=== PATIENT | male | born 1995 | race Two or more races ===

== ENCOUNTER 2022-10-03 10:57 | Emergency (ER) | payer SELFPAY ==
[~2022-10-03] VITALS: Ht 175.3 cm; Wt 73.4 kg
[2022-10-03 12:47] VITALS: BP 130/80
== END 2022-10-03 13:41 | disposition home or self-care (01) ==
LOC: ER 10:57
DX: S29.011A Strain of muscle and tendon of front wall of thorax, initial encounter (principal); X58.XXXA Exposure to other specified factors, initial encounter; Y93.89 Activity, other specified; Y92.89 Other specified places as the place of occurrence of the external cause; Y99.8 Other external cause status
CPT/HCPCS: 71101

== ENCOUNTER 2025-05-31 15:09 | Inpatient (IN) | payer MEDICAID, OTHER ==
[~2025-05-31] VITALS: Ht 175.3 cm; Wt 90.9 kg
--- NOTE | 2025-05-31 15:40 | ED.PDOC ---
GI ASSESSMENT HPI Comments This is a 29 year old male presenting to the ED with chief complaint of abdominal pain and blood in stool. Patient reports that he has been experiencing LLQ abdominal pain for the past 3 days with associated nausea, dizziness, and lightheadedness, however, he started to experience bright red blood in his stool today. Patient relays that he has had similar pain in the past. Patient denies any vomiting, diarrhea, fever, chills, or headache. Chief Complaint: Abdominal Pain Time Seen by MD: 15:36 Primary Care Provider: NONE Reviewed Notes: Nurses Notes, Medications, Allergies Allergies: Coded Allergies: NO KNOWN ALLERGIES (Unverified , 10/03/22) Home Meds Active Scripts Hydrocortisone Base (Anusol-Hc) 2.5 % Cre, 1 APPLIC TOP BID for 10 Days, #5 GRAMS 1 Refill Prov:OZZY WONG MD 05/31/25 Information Source: Patient Mode of Arrival: Ambulatory Timing: Days Duration: Since onset Prehospital treatment: None Quality: Sharp Vomitus: None Stool: Blood Streaked Severity: Moderate Recent: None Recent Hx of: None Pain Location: LLQ Modifying Factors: Nothing Associated sign and symptoms: Abdominal Pain, Blood in Stool Past Medical History PAST MEDICAL HISTORY: Denies Surgical History: Denies all surgeries Family History Family History: Reviewed,noncontributory to illness Social History Smoker: Non-Smoker Alcohol: Denies ETOH Use Drugs: Denies Drug Use Lives In: Home Constitutional: denies: chills, diaphoresis, fatigue, fever, malaise, sweats, weakness, others EENTM: denies: blurred vision, double vision, ear bleeding, ear discharge, ear drainage, ear pain, ear ringing, eye pain, eye redness, hearing loss, mouth pain, mouth swelling, nasal discharge, nose bleeding, nose congestion, nose p ain, photophobia, tearing, throat pain, throat swelling, voice changes, others Respiratory: denies: cough, hemoptysis, orthopnea, SOB at rest, shortness of breath, SOB with excertion, stridor, wheezing, others Cardiovascular: reports: lightheadedness; denies: chest pain, dizzy spells, diaphoresis, Dyspnea on exertion, edema, irregular heart beat, left arm pain, palpitations, PND, syncope, others Gastrointestinal: reports: abdominal pain, blood streaked bowels, nausea; denies: abdomen distended, constipated, diarrhea, dysphagia, difficulty swallowing, hematemesis, melena, poor appetite, poor fluid intake, rectal bleeding, rectal pain, vomiting, others Genitourinary: denies: burning, dysuria, flank pain, frequency, hematuria, incontinence, penile discharge, penile sore, pain, testicle pain, testicle swelling, urgency, others Neurological: reports: dizziness; denies: fainting, headache, left sided numbness, left sided weakness, numbness, paresthesia, pre-existing deficit, right sided numbness, right sided weakness, seizure, speech problems, tingling, tremors, weakness, others Musculoskeletal: denies: back pain, gout, joint pain, joint swelling, muscle pain, muscle stiffness, neck pain, others Integumetry: denies: bruises, change in color, change in hair/nails, dryness, laceration, lesions, lumps, rash, wounds, others Allergic/Immunocompromised: denies: Difficulty Healing, Frequent Infections, Hives, Itching, others Hematologic/Lymphatic: denies: anemia, blood clots, easy bleeding, easy bruising, swollen glands, others Endocrine: denies: excessive hunger, excessive sweating, excessive thirst, excessive urination, flushing, intolerance to cold, intolerance to heat, unexplained weight gain, unexplained weight loss, others Psychiatric: denies: anxiety, bipolar disorder, depression, hopeless, panic disorder, schizophrenia, sleepless, suicidal, others All Other Systems: Reviewed and Negative Physical Exam General Appearance: Moderate Distress, Normal HEENT: Normal ENT Inspection, Pharynx Normal, TMs Normal Neck: Full Range of Motion, Non-Tender, Normal, Normal Inspection Respiratory: Chest Non-Tender, Lungs Clear, No Accessory Muscle Use, No Respiratory Distress, Normal Breath Sounds Cardiovascular: No Edema, No JVD, No Murmur, No Gallop, Normal Peripheral Pulses, Regular Rate/Rhythm Breast Exam: Deferred Gastrointestinal: No Organomegaly, Non Tender, No Pulsatile Mass, Normal Bowel Sounds, Soft Genitalia: Deferred Pelvic: Deferred Rectal: Deferred Extremities: No calf tenderness, Normal capillary refill, Normal inspection, Normal range of motion, Non-tender, No pedal edema Musculoskeletal : Apperance: Normal Neurologic: Alert, bone grinder II-XII nml as Tested, No Motor Deficits, Normal Affect, Normal Mood, No Sensory Deficits Cerebellar Function: Normal Reflexes: Normal Skin: Dry, Normal Color, Warm Peripheral Pulses: 3+ Radial (R), 3+ Radial (L) Lymphatic: No Adenopathy Was a procedure done? Was a procedure done?: No GI differential Dx Differential Diagnosis: Constipation, Diverticular disease, Esophagitis, Gastritis/PUD, Gastroenteritis X-Ray, Labs, Meds, VS Vital Signs Date Time Temp Pulse Resp B/P (MAP) Pulse Ox O2 Delivery O2 Flow Rate FiO2 05/31/25 15:19 98.0 88 16 131/85 96 98.0 Lab Test 05/31/25 15:41 Range/Units White Blood Count 5.4 4.4-10.8 10^3/uL Red Blood Count 5.17 4.5-5.90 10^6/uL Hemoglobin 16.6 13.5-17.5 g/dL Hematocrit 49.9 41.0-53.0 % Mean Corpuscular Volume 96.4 80.0-100.0 fL Mean Corpuscular Hemoglobin 32.1 H 28.0-32.0 pg Mean Corpuscular Hemoglobin Concent 33.3 32.0-36.0 g/dL Red Cell Distribution Width 13.5 11.8-14.3 % Platelet Count 275 140-450 10^3/uL Mean Platelet Volume 7.8 6.9-10.8 fL Neutrophils (%) (Auto) 55.7 37.0-80.0 % Lymphocytes (%) (Auto) 30.6 10.0-50.0 % Monocytes (%) (Auto) 10.7 0.0-12.0 % Eosinophils (%) (Auto) 1.5 0.0-7.0 % Basophils (%) (Auto) 1.5 0.0-2.0 % Neutrophils # (Auto) 3.0 1.6-8.6 10 ^3/uL Lymphocytes # (Auto) 1.7 0.4-5.4 10 ^3/uL Monocytes # (Auto) 0.6 0-1.3 10 ^3/uL Eosinophils # (Auto) 0.1 0-0.8 10 ^3/uL Basophils # (Auto) 0.1 0-0.2 10 ^3/uL Nucleated Red Blood Cells 0.0 % Patient alert. Came in because of blood per rectum. Vitals stable. Answering questions. Possible hemorrhoid. WBC within normal limits. Hemoglobin within normal limits. Complaining of abdominal discomfort. CT scan of the abdomen reviewed does show appendagitis. Was given prescription of Anusol hydrocortisone. He continues to have abdominal pain. He will be admitted for pain control. Explained to the patient. Time of 1ST Reevaluation: 16:36 Reevaluation 1ST: Unchanged Patient Education/Counseling: Diagnosis, Treatment Family Education/Counseling: No Family Present SEPSIS Sepsis Screen Date sepsis recognized/suspect: May 31, 2025 Time Sepsis recognized/suspect: 1521 Recent Procedure: No On Antibiotic Therapy: No Respiratory Rate >20: No Heart Rate >90: No Temp<36 C (96.8 F) or >38.3 C: No SBP <90 or MAP <65 mmHG: No New Acute Mental Status Change: No Is the patient on CPAP, BIPAP,: No Physician Orders Ct Ab Pel Wo Con-No Oral Or Iv (05/31/25 15:33) Vital Signs Date Time Temp Pulse Resp B/P (MAP) Pulse Ox O2 Delivery O2 Flow Rate FiO2 05/31/25 15:19 98.0 88 16 131/85 96 98.0 Laboratory Tests Test 05/31/25 15:41 White Blood Count 5.4 10^3/uL (4.4-10.8) Departure 1 Departure Time of Disposition: 16:18 Impression: Primary Impression: Epiploic appendagitis Additional Impression: Hemorrhoid Qualified Codes: K64.9 - Unspecified hemorrhoids Disposition: 01 HOME / SELF CARE / HOMELESS Condition: Good e-Prescriptions Hydrocortisone Base (Anusol-Hc) 2.5 % Cre 1 APPLIC TOP BID for 10 Days, #5 GRAMS 1 Refill Prov: OZZY WONG MD 05/31/25 Discharged With: Self Critical Care Note Critical Care Time?: No Stability Stability form required: No Heart Score Heart Score: Heart Score Response (Comments) Value History N/A 0 EKG N/A 0 Age N/A 0 Risk Factors N/A 0 Troponin N/A 0 Total 0 I personally scribed for OZZY WONG MD ([email or web address]) on 05/31/25 at 15:40. Electronically submitted by Noah Vasques ([email or web address]). OZZY WONG MD May 31, 2025 15:40
[2025-05-31 15:58] LABS: Hematocrit 49.9 % (41.0-53.0); Hemoglobin 16.6 g/dL (13.5-17.5); Mean Corpuscular Hemoglobin 32.1 pg (28.0-32.0); Mean Corpuscular Volume 96.4 fL (80.0-100.0); Nucleated Red Blood Cells % 0.0 %
[2025-05-31] MEDS ORDERED: HYDR2.5C39 TOP (16:19)
--- NOTE | 2025-05-31 16:22 | DVH ---
EXAM: CT CT AB PEL WO CON-NO ORAL OR IV INDICATION: constipationvsenteritis TECHNIQUE: Volumetric multidetector CT images of the abdomen and pelvis were obtained without contrast. All CT scans at this facility use dose modulation, iterative reconstruction, and/or weight based dosing when appropriate to reduce radiation dose to as low as reasonably achievable. COMPARISON: None FINDINGS: [LOWER CHEST]: Atelectasis in the right lung base. The cardiac size is normal without pericardial effusion. [LIVER]: Inconspicuous geographic areas of hypoattenuation of the liver which is incompletely characterized. Differential includes hepatic steatosis. [GALLBLADDER AND BILIARY TREE]: No cholelithiasis. [SPLEEN]: Splenic calcifications. [PANCREAS]: Unremarkable. [ADRENAL GLANDS]: Unremarkable [KIDNEYS]: No hydronephrosis. No nephroureterolithiasis. No suspicious focal lesion. [BLADDER]: Unremarkable for the degree distention. [REPRODUCTIVE ORGANS]: Unremarkable. [BOWEL/MESENTERY]: Inconspicuous area of presumed epiploic appendagitis of the anterior aspect of the left descending colon (axial 54). No significant stool burden. Normal appendix. Stomach is normal. No CT evidence of bowel obstruction. [ASCITES]: Absent [LYMPHADENOPATHY]: No pathologically enlarged lymph nodes by CT size criteria [VASCULATURE]: No aneurysmal dilatation. [ABDOMINAL WALL]: Unremarkable. [MUSCULOSKELETAL]: No acute fracture or aggressive focal osseous lesion. IMPRESSION: 1. Inconspicuous area of presumed epiploic appendagitis of the anterior aspect of the left descending colon. 2. No significant stool burden. 3. geographic areas of hypoattenuation of the liver which is incompletely characterized. Inconspicuous 4. Differential includes hepatic steatosis.
[2025-05-31] MEDS: SODIUM CHLORIDE 0.9% 1,000 ML IV ONE (16:45)
[2025-05-31] MEDS ORDERED: ACETAMINOPHEN 325 MG TAB PO PRN (17:15)
[2025-05-31] MEDS ORDERED: MORPHINE SULFATE INJ 2 MG/ml SYRG IV PRN (17:15)
[2025-05-31] MEDS ORDERED: ONDANSETRON HCL 4 MG/2 ML VIAL IV PRN (17:15)
[2025-05-31] MEDS ORDERED: NITROGLYCERIN 0.4 MG SL TAB SL PRN (17:15)
[2025-05-31] MEDS ORDERED: DOCUSATE SOD 100 MG CAP PO PRN (17:15)
--- NOTE | 2025-05-31 17:19 | DVHHP2 ---
History of Present Illness Reason for Visit: Epiploic appendagitis History of Present Illness The patient is a 29-year-old male who denies past medical history presented to [facility] ED with complaint of abdominal pain for the past 3 days. Patient reports that he has been experiencing left lower quadrant abdominal pain associated with bright red blood in stool, nausea, dizziness, lightheadedness, getting worse today that prompted this visit. Patient was seen and evaluated in the ED, laboratory data shows WBC 5.4, platelets 275, chemistry pending, blood pressure 131/85, heart rate 88, temperature 98.0 F, O2 saturation 96% on room air. Abdomen/pelvis CT revealing inconspicuous area of presumed epiploic appendagitis of the anterior aspect of the left ascending colon, no significant stool burden. Patient was started on IV antibiotic regimen Flagyl, please see medication orders section in the computer. On my assessment, patient denied chest pain, no headache, dizziness, diaphoresis, shortness of breaths, no abdominal pain at this moment, diarrhea, nausea, vomiting, fever, no chills. Patient was admitted for further evaluation and medical management. Past Medical History Denies past medical history Past Surgical History Denies all surgeries Family History Reviewed, noncontributory to the management of this case. Past Social History The patient lives at home, denies smoking, alcohol or illicit drugs abuse. Review of Systems Constitutional: No: Fever, Chills, Sweats, Weakness, Malaise, Other Eyes: No: Pain, Vision change, Conjunctivae inflammation, Eyelid inflammation, Other, Redness ENT: No: Ear pain, Ear discharge, Nose pain, Nose discharge, Nose congestion, Mouth pain, Mouth swelling, Throat pain, Throat swelling, Other Respiratory: No: Cough, Dry, Shortness of breath, SOB with excertion, Wheezing, Hemoptysis, Pleuritic Pain, Sputum, Wheezing, Other Cardiovascular: Lt Headedness; No: Chest Pain, Palpitations, Orthopnea, Paroxysmal Noc. Dyspnea, Edema, Other Gastrointestinal: Nausea, Abdominal Pain, Other (Blood streaked bowels); No: Vomiting, Diarrhea, Constipation, Melena, Hematochezia Genitourinary: No Dysuria, No Frequency, No Incontinence, No Hematuria, No R etention, No Other Musculoskeletal: No: other, neck pain, shoulder pain, arm pain, back pain, hand pain, leg pain, foot pain Skin: No: Rash, Lesions, Jaundice, Bruising, Other Neurological: No: Weakness, Numbness, Incoordination, Change in speech, Confusion, Seizures, Other Allergies: Coded Allergies: NO KNOWN ALLERGIES (Unverified , 10/03/22) Exam Vital Signs Vital Signs Date Time Temp Pulse Resp B/P (MAP) Pulse Ox O2 Delivery O2 Flow Rate FiO2 05/31/25 15:19 98.0 88 16 131/85 96 98.0 General Appearance: Alert, Oriented X3, Cooperative, No acute distress HEENT: Atraumatic, PERRLA, EOMI, Mucous membr. moist/pink Respiratory: Normal air movement Cardiovascular: Regular rate, Normal S1, Normal S2, No murmurs Abdominal: Normal bowel sounds, Soft, No hepatospenomegaly, No masses, Other (Reports tenderness) Extremities: No clubbing, No cyanosis, No edema, Normal pulses, No tenderness/swelling Skin: No rashes, No breakdown, No significant lesion Neuro: Normal speech, Normal tone, Sensation intact, Cranial nerves 3-12 NL, Reflexes 2+, Other (Weakness) Psych/Mental Status: Mental status NL, Mood NL Labs/Xrays Labs Test 05/31/25 15:41 Range/Units White Blood Count 5.4 4.4-10.8 10^3/uL Red Blood Count 5.17 4.5-5.90 10^6/uL Hemoglobin 16.6 13.5-17.5 g/dL Hematocrit 49.9 41.0-53.0 % Mean Corpuscular Volume 96.4 80.0-100.0 fL Mean Corpuscular Hemoglobin 32.1 H 28.0-32.0 pg Mean Corpuscular Hemoglobin Concent 33.3 32.0-36.0 g/dL Red Cell Distribution Width 13.5 11.8-14.3 % Platelet Count 275 140-450 10^3/uL Mean Platelet Volume 7.8 6.9-10.8 fL Neutrophils (%) (Auto) 55.7 37.0-80.0 % Lymphocytes (%) (Auto) 30.6 10.0-50.0 % Monocytes (%) (Auto) 10.7 0.0-12.0 % Eosinophils (%) (Auto) 1.5 0.0-7.0 % Basophils (%) (Auto) 1.5 0.0-2.0 % Neutrophils # (Auto) 3.0 1.6-8.6 10 ^3/uL Lymphocytes # (Auto) 1.7 0.4-5.4 10 ^3/uL Monocytes # (Auto) 0.6 0-1.3 10 ^3/uL Eosinophils # (Auto) 0.1 0-0.8 10 ^3/uL Basophils # (Auto) 0.1 0-0.2 10 ^3/uL Nucleated Red Blood Cells 0.0 % PATIENT: VAMSI BELL ACCT: [id number] UNIT: [id number] : 1995 LOC: ER ROOM / BED: / AGE / SEX: 29 / M ADM STATUS: REG ER SERVICE 1533 ORDERING PHYSICIAN: OZZY WONG MD PROCEDURE(s): ABPL - CT AB PEL WO CON-NO ORAL OR IV REASON: constipationvsenteritis ORDER NUMBER(s): [id number], ACCESSION NUMBER(s): [id number] EXAM: CT CT AB PEL WO CON-NO ORAL OR IV INDICATION: constipationvsenteritis TECHNIQUE: Volumetric multidetector CT images of the abdomen and pelvis were obtained without contrast. All CT scans at this facility use dose modulation, iterative reconstruction, and/or weight based dosing when appropriate to reduce radiation dose to as low as reasonably achievable. COMPARISON: None FINDINGS: [LOWER CHEST]: Atelectasis in the right lung base. The cardiac size is normal without pericardial effusion. [LIVER]: Inconspicuous geographic areas of hypoattenuation of the liver which is incompletely characterized. Differential includes hepatic steatosis. [GALLBLADDER AND BILIARY TREE]: No cholelithiasis. [SPLEEN]: Splenic calcifications. [PANCREAS]: Unremarkable. [ADRENAL GLANDS]: Unremarkable [KIDNEYS]: No hydronephrosis. No nephroureterolithiasis. No suspicious focal lesion. [BLADDER]: Unremarkable for the degree distention. [REPRODUCTIVE ORGANS]: Unremarkable. [BOWEL/MESENTERY]: Inconspicuous area of presumed epiploic appendagitis of the anterior aspect of the left descending colon (axial 54). No significant stool burden. Normal appendix. Stomach is normal. No CT evidence of bowel obstruction. [ASCITES]: Absent [LYMPHADENOPATHY]: No pathologically enlarged lymph nodes by CT size criteria [VASCULATURE]: No aneurysmal dilatation. [ABDOMINAL WALL]: Unremarkable. [MUSCULOSKELETAL]: No acute fracture or aggressive focal osseous lesion. IMPRESSION: 1. Inconspicuous area of presumed epiploic appendagitis of the anterior aspect of the left descending colon. 2. No significant stool burden. 3. geographic areas of hypoattenuation of the liver which is incompletely characterized. Inconspicuous 4. Differential includes hepatic steatosis. SEPSIS Sepsis Screen Date sepsis recognized/suspect: May 31, 2025 Time Sepsis recognized/suspect: 1521 Recent Procedure: No On Antibiotic Therapy: No Respiratory Rate >20: No Heart Rate >90: No Temp<36 C (96.8 F) or >38.3 C: No SBP <90 or MAP <65 mmHG: No New Acute Mental Status Change: No Is the patient on CPAP, BIPAP,: No Physician Orders Ct Ab Pel Wo Con-No Oral Or Iv (05/31/25 15:33) Sodium Chloride 0.9% (05/31/25 16:45) Metronidazole Ivpb Flagyl (05/31/25 22:00) Metronidazole Ivpb Flagyl (05/31/25 17:15) Ceftriaxone Ivpb Rocephin (06/01/25 09:00) Ceftriaxone Ivpb Rocephin (05/31/25 17:15) Admit (05/31/25 17:15) Allergies (05/31/25 17:15) Code Status (05/31/25 17:15) 0.9% Ns 1000 Ml (05/31/25 17:15) Oxygen Per Hour (05/31/25 17:15) Hydrocodone-Acet 5/325mg Tab ([place] 5/32 (05/31/25 17:15) Ondansetron Hcl (Zofran) (05/31/25 17:15) Docusate Sodium Capsule (Colace Capsule) (05/31/25 17:15) Complete Blood Count (06/01/25 04:00) Comprehensive Metabolic Panel (06/01/25 04:00) Condition: Serious (05/31/25 17:15) Acetaminophen Tablet (Tylenol Tablet) (05/31/25 17:15) Clear Liq Diet (05/31/25 Dinner) Bedrest With Bathroom Privileg (05/31/25 17:15) Morphine Sulfate Injection (05/31/25 17:15) Sequential Compression Device (05/31/25 ) Nitroglycerin Sublingual (Ntrostat Subli (05/31/25 17:15) Morphine Sulfate Injection (05/31/25 17:15) Stat Ekg For Chest Pain (05/31/25 17:15) Notify Md Of Changes From Base (05/31/25 17:15) Laminating Machine Offbearer For 24 Hours (05/31/25 17:15) Emergency Dysrhythmia Protocol (05/31/25 17:15) Rhythm Strips Once Every Shift (05/31/25 17:15) Oxygen By Nasal Cannula (05/31/25 17:15) Vital Signs Date Time Temp Pulse Resp B/P (MAP) Pulse Ox O2 Delivery O2 Flow Rate FiO2 05/31/25 15:19 98.0 88 16 131/85 96 98.0 Laboratory Tests Test 05/31/25 15:41 White Blood Count 5.4 10^3/uL (4.4-10.8) Assessment/Plan Assessment/Plan Epiploic appendagitis Hemorrhoid Unspecified hemorrhoids Plan 1. Admit to med surge unit 2. Breathing treatment 3. Pain control management 4. IV antibiotic management 5. Management of fluids and electrolytes 6. Consultation for hospitalist 7. Diagnostic test abdomen/pelvis CT 8. DVT prophylaxis on SCDs 9. Repeat labs CBC, CMP in a.m. 10. Continue with current medical management 11. Treatment plan discussed with patient and RN. Patient verbalized understanding. Plan discussed with: Patient, Other (RN) My Orders Orders - JAMIE STEPHENSON DNP Procedure Category Date Status Time Metronidazole Ivpb PHA 05/31/25 Verified Flagyl 22:00 Metronidazole Ivpb PHA 05/31/25 Verified Flagyl 17:15 Ceftriaxone Ivpb PHA 06/01/25 Verified Rocephin 09:00 Ceftriaxone Ivpb PHA 05/31/25 Verified Rocephin 17:15 Admit ADMIT 05/31/25 Verified 17:15 Allergies BRENNAN 05/31/25 Verified 17:15 Code Status CODE 05/31/25 Verified 17:15 0.9% Ns 1000 Ml PHA 05/31/25 Verified 17:15 Oxygen Per Hour RT 05/31/25 Verified 17:15 Hydrocodone-Acet PHA 05/31/25 Verified 5/325mg Tab ([place] 17:15 Ondansetron Hcl PHA 05/31/25 Verified (Zofran) 17:15 Docusate Sodium PHA 05/31/25 Verified Capsule (Colace 17:15 Complete Blood Count LAB 06/01/25 Verified 04:00 Comprehensive LAB 06/01/25 Verified Metabolic Panel 04:00 Condition: Serious BRENNAN 05/31/25 Verified 17:15 Acetaminophen Tablet PHA 05/31/25 Verified (Tylenol Tablet) 17:15 Clear Liq Diet DIET 05/31/25 Verified Dinner Bedrest With Bathroom BRENNAN 05/31/25 Verified Privileg 17:15 Morphine Sulfate PHA 05/31/25 Verified Injection 17:15 Sequential BRENNAN 05/31/25 Verified Compression Device Nitroglycerin [facility] 05/31/25 Verified Sublingual (Ntrostat 17:15 Morphine Sulfate PHA 05/31/25 Verified Injection 17:15 Stat Ekg For Chest [facility] 05/31/25 Verified Pain 17:15 Notify Md Of Changes [facility] 05/31/25 Verified From Base 17:15 Laminating Machine Offbearer For [facility] 05/31/25 Verified 24 Hours 17:15 Emergency Dysrhythmia [facility] 05/31/25 Verified Protocol 17:15 Rhythm Strips Once [facility] 05/31/25 Verified Every Shift 17:15 Oxygen By Nasal RT 05/31/25 Verified Cannula 17:15 Problem List: (1) Epiploic appendagitis (2) Hemorrhoid (3) Unspecified hemorrhoids Date of Service: May 31, 2025 Billing Provider: JAMIE STEPHENSON DNP Common Visit Codes: [id number] INP/OBS CARE (HIGH) AJMIE STEPHENSON DNP May 31, 2025 17:19
[2025-05-31 18:34] LABS: Anion Gap 12 (5-15); BUN/Creatinine Ratio 11.4 (10.0-20.0); Bilirubin, Total 0.7 mg/dL (0.2-1.0); Blood Urea Nitrogen 9 mg/dL (9-23); Calcium 9.9 mg/dL (8.7-10.4); Carbon Dioxide 25 mmol/L (20-31); Chloride 106 mmol/L (98-107); Glucose 94 mg/dL (74-106); Potassium 3.7 mmol/L (3.5-5.1); Sodium 143 mmol/L (136-145)
[2025-05-31 18:36] LABS: Alanine Aminotransferase 155 U/L (7-40); Albumin 4.8 g/dL (3.2-4.8); Alkaline Phosphatase 156 U/L (46-116); Total Protein 8.3 g/dL (5.7-8.2)
[2025-05-31] MEDS: ONDANSETRON HCL 4 MG/2 ML VIAL IV ONE (21:32)
[2025-05-31] MEDS: MORPHINE SULFATE 4 MG/ML SYR/VIAL IV ONE (21:34)
[2025-05-31 22:22] VITALS: BP 137/81; PULSE 71; RESP 18; TEMP 98.1; O2SAT 95; O2SAT 97
[2025-05-31 22:43] VITALS: BP 137/81; PULSE 71; RESP 18; TEMP 98.1; O2SAT 95
[2025-05-31] MEDS ORDERED: CALC500C3 PO (23:19)
[2025-06-01 01:00] VITALS: BP 118/76; PULSE 59; RESP 18; TEMP 98.4; O2SAT 97
[2025-06-01] MEDS: SODIUM CHLORIDE 0.9% 1,000 ML IV SCH (01:07)
[2025-06-01] MEDS: HYDROcodone-ACET 5/325MG TAB PO PRN (01:41)
[2025-06-01 03:24] LABS: Hematocrit 44.9 % (41.0-53.0); Hemoglobin 15.1 g/dL (13.5-17.5); Mean Corpuscular Hemoglobin 32.4 pg (28.0-32.0); Mean Corpuscular Volume 96.6 fL (80.0-100.0); Nucleated Red Blood Cells % 0.0 %
[2025-06-01 03:37] LABS: Albumin 4.1 g/dL (3.2-4.8); Anion Gap 10 (5-15); BUN/Creatinine Ratio 12.8 (10.0-20.0); Bilirubin, Total 0.6 mg/dL (0.2-1.0); Blood Urea Nitrogen 10 mg/dL (9-23); Calcium 9.1 mg/dL (8.7-10.4); Carbon Dioxide 26 mmol/L (20-31); Chloride 103 mmol/L (98-107); Glucose 103 mg/dL (74-106); Potassium 3.7 mmol/L (3.5-5.1); Sodium 139 mmol/L (136-145); Total Protein 7.0 g/dL (5.7-8.2)
[2025-06-01 03:48] LABS: Alanine Aminotransferase 121 U/L (7-40); Alkaline Phosphatase 130 U/L (46-116)
[2025-06-01 05:00] VITALS: BP 103/67; PULSE 50; RESP 18; TEMP 97.4; O2SAT 98
[2025-06-01 09:00] VITALS: BP 122/79; PULSE 72; RESP 20; TEMP 97.4; O2SAT 95
[2025-06-01 13:00] VITALS: BP 127/92; PULSE 61; RESP 20; TEMP 98.1; O2SAT 97
--- NOTE | 2025-06-01 15:18 | DVHPN2 ---
Subjective Mild pain today Reviewed: H&P Changes from previous H/P or p: No Changes Eyes: No Pain, No Vision change, No Conjunctivae inflammation, No Eyelid inflammation, No Other, No Redness ENT: No Ear pain, No Ear discharge, No Nose pain, No Nose discharge, No Nose congestion, No Mouth pain, No Mouth swelling, No Throat pain, No Throat swelling, No Other Cardiovascular: No Chest Pain, No Palpitations, No Orthopnea, No Paroxysmal Noc. Dyspnea, No Edema; Lt Headedness; No Other Respiratory: No Cough, No Dry, No Shortness of breath, No SOB with excertion, No Wheezing, No Hemoptysis, No Pleuritic Pain, No Sputum, No Other Gastrointestinal: Nausea; No Vomiting; Abdominal Pain; No Diarrhea, No Constipation, No Melena, No Hematochezia; Other (Blood streaked bowels) Genitourinary: No Dysuria, No Frequency, No Incontinence, No Hematuria, No Retention, No Other Musculoskeletal: No other, No neck pain, No shoulder pain, No arm pain, No back pain, No hand pain, No leg pain, No foot pain Skin: No Rash, No Lesions, No Jaundice, No Bruising, No Other Objective Vitals Vital Signs Date Time Temp Pulse Resp B/P (MAP) Pulse Ox O2 Delivery O2 Flow Rate FiO2 06/01/25 13:00 98.1 61 20 127/92 (104) 97 98.1 05/31/25 22:22 Room Air* 0 21 Intake/Output Intake and Output 06/01/25 07:00 Intake Total 200 ml Balance 200 ml Intake IV Total 200 ml # Voids 2 General Appearance: Alert, Oriented X3 Lungs: Clear to auscultation Cardiovascular: Regular rate, Normal S1, Normal S2 Abdomen: Normal bowel sounds Medications Current Medications Medications Dose Ordered Sig/Ritchie Route Start Time Stop Time Status Last Admin Dose Admin Metronidazole 100 ml @ 100 mls/hr Q8H IV 05/31/25 17:24 06/01/25 08:56 100 MLS/HR Ceftriaxone Sodium 50 ml @ 100 mls/hr DAILY@09 IV 06/01/25 09:00 06/01/25 08:56 100 MLS/HR Sodium Chloride 1,000 ml @ 60 mls/hr [id number] IV 05/31/25 17:15 06/01/25 01:07 60 MLS/HR Acetaminophen/ Hydrocodone Bitart 1 tab Q4HP PRN PO 05/31/25 17:15 06/01/25 13:23 1 TAB Ondansetron HCl 4 mg Q4HP PRN IV 05/31/25 17:15 Docusate Sodium 100 mg BIDPRN PRN PO 05/31/25 17:15 Acetaminophen 650 mg Q6HP PRN PO 05/31/25 17:15 Morphine Sulfate 2 mg Q4HPRN PRN IV 05/31/25 17:15 Nitroglycerin 0.4 mg Q5MINP PRN SL 05/31/25 17:15 Morphine Sulfate 2 mg Q30M PRN IV 05/31/25 17:15 Laboratory Results Laboratory Tests 06/01/25 02:22 Chemistry Test 05/31/25 15:41 06/01/25 02:22 Albumin 4.8 g/dL (3.2-4.8) 4.1 g/dL (3.2-4.8) Calcium Level 9.9 mg/dL (8.7-10.4) 9.1 mg/dL (8.7-10.4) Total Protein 8.3 g/dL (5.7-8.2) H 7.0 g/dL (5.7-8.2) LFT Test 05/31/25 15:41 06/01/25 02:22 Alanine Aminotransferase (ALT) 155 U/L (7-40) H 121 U/L (7-40) H Alkaline Phosphatase 156 U/L (46-116) H 130 U/L (46-116) H Aspartate Amino Transferase (AST) 182 U/L (13-40) H 146 U/L (13-40) H Total Bilirubin 0.7 mg/dL (0.2-1.0) 0.6 mg/dL (0.2-1.0) Assessment/Plan Assessment/Plan Epiploic appendagitis Hemorrhoid Unspecified hemorrhoids Consult surgery NPO IVF IV ceftriaxone and flagyl Plan discussed with: Patient My Orders Orders - ASHLIE WANG MD Procedure Category Date Status Time * Surgical Consult CONS 06/01/25 Transmitted Date of Service: Jun 01, 2025 Billing Provider: ASHLIE WANG MD Common Visit Codes: [id number] INP/OBS CARE(HIGH) ASHLIE WANG MD Jun 01, 2025 15:18
[2025-06-01 17:00] VITALS: BP 124/73; PULSE 73; RESP 20; TEMP 97.6; O2SAT 95
--- NOTE | 2025-06-01 18:37 | DVH ---
INDICATION: GALLBLADDER STONES TECHNIQUE: Multiple real-time sonographic images of the abdomen were obtained. COMPARISON: None FINDINGS: Echogenic changes to the hepatic parenchyma consistent with steatosis The liver measures 16.3 cm. No intrahepatic biliary ductal dilatation is noted. The gallbladder wall measures 1.9 mm and is unremarkable. No gallstones or sludge is seen. The common duct measures N/V cm and is unremarkable. No pericholecystic fluid is noted. The right kidney measures 11.4cm. No hydronephrosis. The pancreas is not well visualized due to obscuration from bowel gas. The visualized portions of the IVC and aorta are grossly unremarkable. IMPRESSION: 1. 16.3 cm liver with changes to the parenchyma suggesting steatosis. 2. Right kidney measures 11.4 cm and there is no hydronephrosis.
[2025-06-01 21:00] VITALS: BP 131/88; PULSE 67; RESP 17; TEMP 98.1; O2SAT 94
[2025-06-01] MEDS: MORPHINE SULFATE 4 MG/ML SYR/VIAL IV PRN (21:18)
[2025-06-02 01:00] VITALS: BP 126/88; PULSE 77; RESP 17; TEMP 98; O2SAT 97
[2025-06-02 05:00] VITALS: BP 113/86; PULSE 86; RESP 18; TEMP 97.7; O2SAT 96
[2025-06-02 09:00] VITALS: BP 111/64; PULSE 76; RESP 20; TEMP 97.6; O2SAT 97
--- NOTE | 2025-06-02 09:49 | DVHINCON2 ---
Date of service: Jun 02, 2025 Family History: Hypertension G8 MOTHER Allergies: Coded Allergies: NO KNOWN ALLERGIES (Unverified , 10/03/22) Home Meds Reported Medications Calcium Carbonate (Tums) 500 Mg Chw, 500 MG PO, TAB.CHEW 05/31/25 Vital Signs Vital Signs Date Time Temp Pulse Resp B/P (MAP) Pulse Ox O2 Delivery O2 Flow Rate FiO2 06/02/25 09:00 97.6 76 20 111/64 (80) 97 97.6 06/02/25 08:08 Room Air* 0 21 Labs/Diagnostic Data Labs Test 06/01/25 02:22 Range/Units White Blood Count 6.2 4.4-10.8 10^3/uL Red Blood Count 4.65 4.5-5.90 10^6/uL Hemoglobin 15.1 13.5-17.5 g/dL Hematocrit 44.9 # 41.0-53.0 % Mean Corpuscular Volume 96.6 80.0-100.0 fL Mean Corpuscular Hemoglobin 32.4 H 28.0-32.0 pg Mean Corpuscular Hemoglobin Concent 33.5 32.0-36.0 g/dL Red Cell Distribution Width 13.7 11.8-14.3 % Platelet Count 273 140-450 10^3/uL Mean Platelet Volume 8.1 6.9-10.8 fL Neutrophils (%) (Auto) 51.5 37.0-80.0 % Lymphocytes (%) (Auto) 34.7 10.0-50.0 % Monocytes (%) (Auto) 11.0 0.0-12.0 % Eosinophils (%) (Auto) 1.8 0.0-7.0 % Basophils (%) (Auto) 1.0 0.0-2.0 % Neutrophils # (Auto) 3.2 1.6-8.6 10 ^3/uL Lymphocytes # (Auto) 2.2 0.4-5.4 10 ^3/uL Monocytes # (Auto) 0.7 0-1.3 10 ^3/uL Eosinophils # (Auto) 0.1 0-0.8 10 ^3/uL Basophils # (Auto) 0.1 0-0.2 10 ^3/uL Nucleated Red Blood Cells 0.0 % Sodium Level 139 136-145 mmol/L Potassium Level 3.7 3.5-5.1 mmol/L Chloride Level 103 98-107 mmol/L Carbon Dioxide Level 26 20-31 mmol/L Anion Gap 10 5-15 Blood Urea Nitrogen 10 9-23 mg/dL Creatinine 0.78 0.700-1.30 mg/dL Glomerular Filtration Rate Calc 124 >90 mL/min BUN/Creatinine Ratio 12.8 10.0-20.0 Serum Glucose 103 74-106 mg/dL Calcium Level 9.1 8.7-10.4 mg/dL Total Bilirubin 0.6 0.2-1.0 mg/dL Aspartate Amino Transferase (AST) 146 H 13-40 U/L Alanine Aminotransferase (ALT) 121 H 7-40 U/L Alkaline Phosphatase 130 H 46-116 U/L Total Protein 7.0 5.7-8.2 g/dL Albumin 4.1 3.2-4.8 g/dL Assessment 29 year old male with resolving abdominal pain, diagnosed with epuiploic appendicitis, minimal residual tenderness in suprapubic area, no distention, no peritoneal signs, no indication for surfical intervention, OK to increase po intake and discharge per primary physician. Plan discussed with: Patient VICENTE GOOD MD Jun 02, 2025 09:49
[2025-06-02 14:02] VITALS: BP 111/64; TEMP 36.4
== END 2025-06-02 14:17 | disposition home or self-care (01) | DRG 254 ==
LOC: ER 15:09 → OVERFLOW 17:15 → WEST WING 06-01 18:03
PROVIDERS: ADMIT Hospitalist; ATTEND Hospitalist
DX: K63.89 Other specified diseases of intestine (principal); K64.9 Unspecified hemorrhoids; Z82.49 Family history of ischemic heart disease and other diseases of the circulatory system
CPT/HCPCS: 36415; 74176; 76705; 80053; 85025; G0378; J2405; J3490